=== PATIENT | female | born 1960 | race Caucasian/White ===

== ENCOUNTER → 2017-01-19 | Outpatient (CLI) | payer OTHER ==
--- NOTE | ~2017-01-19 | MY11 ---
[facility] A Service of [facility] & [facility] RADIOLOGY TEXT RESULTS PATIENT: SIRIA BARBOSA LOCATION: [facility] : 64 UNIT #: [id number] AGE: [address]: Dorota Simon MD SEX: F ORDER DR: [id number] [address] [address] [id number] O MR#: [id number] Acc #: [id number] NAME: SIRIA BARBOSA : 1960 SEX: F STUDY DATE/TIME: 01/19/2017 9:54 UNIT: [facility] ROOM: STUDY DESCRIPTION: MY Mammogram Screening Dig Arian Attending Physician: Dorota Simon M.D. Referring Physician: Dorota Simon M.D. Ordering Physician: Dorota Simon M.D. Primary Care Physician: Dorota Simon M.D. MEDICAL IMAGING REPORT This report is preliminary unless electronic signature is present. EXAM Digital screening mammogram, 01/19/2017 HISTORY 56-year-old woman no risk elevation. Annual screening. COMPARISON Mammograms date to 09/18/2005 with most recent 01/17/2016. FINDINGS Digital imaging of each breast was completed utilizing a two-view examination of each breast in craniocaudal and mediolateral-oblique projections. Review and interpretation of digital mammograms include a second review in conjunction with FDA-approved CAD device. There is a normal parenchymal presentation bilaterally consistent with the patient's age. There are no breast masses imaged and no parenchymal asymmetry is visualized. There are no suspicious microcalcifications and I see no focal architectural disturbance. IMPRESSION Negative screening digital mammogram. One-year followup recommended. Patients over the age of 40 are entered into a reminder system with target due date for the next mammogram. A result letter will also be sent to the patient. BIRADS: 1 Negative Dictated by... Tanvir Gaytan M.D. THIS IS AN ELECTRONICALLY VERIFIED REPORT Tanvir Gaytan M.D. at 01/19/2017 1:56 PM [facility] A Service of [facility] & [facility] RADIOLOGY TEXT RESULTS PATIENT: SIRIA BARBOSA LOCATION: [facility] : 64 UNIT #: [id number] AGE: [address]: Dorota Simon MD SEX: F ORDER DR: Phu TD: 01/19/2017 11:17 JOB #: [id number] MEDICAL IMAGING REPORT Page 1 of 1
== END | disposition home or self-care (01) ==
LOC: SMAM 09:07
DX: Z12.31 Encounter for screening mammogram for malignant neoplasm of breast (principal)
CPT/HCPCS: G0202